=== PATIENT | male | born 1995 | race Caucasian/White ===

== ENCOUNTER → 2019-01-23 | Day surgery (SDC) | payer BC, OTHER ==
[~2019-01-23] MED LIST: Acetaminophen TAB* 325 MG PO PRN; Buffered Lidocaine 1% SYRIN* 1 ML/SYRINGE INTRADERM ONE; Bupivacaine 0.5%* 50 ML MDV VIAL ONE; Cisatracurium* 2 MG/ML MDV 5 ML ONE; Dexamethasone IV* 4 MG/ML 1 ML (4 MG) ONE; DiMENhydriNATE IV* 50 MG/ML VIAL IV PUSH PRN; Famotidine IV* 10 MG/ML 2 ML (20 mg) ONE; HYDROcodone/ACETAMIN 5-325 MG* 1 TAB PO PRN; Iohexol 300* (CONTRAST) 10 ML SDV IV ONE; Ketorolac INJ* 30 MG/ML 1 ML VIAL ONE; Lactated Ringers 1000 ML Bag* 1,000 ML IV SCH; Lidocaine 2% PF * 5 ML VIAL ONE; Midazolam* 1 MG/ML 2 ML VIAL (2 MG) ONE; NS 0.9% 1000 ML** 1,000 ML IV ONE; Naloxone* 0.4 MG/ML 1 ML VIAL IV PRN; Ondansetron INJ* 2 MG/ML VIAL IV PRN; Ondansetron INJ* 2 MG/ML VIAL ONE; PROCHLORPERAZINE INJ 5 MG/ML 2 ML VIAL IV PRN; Piperacillin/Tazobac ADVAN(*) 3.375 GM in NS 0.9% 100 ML* 100 ML IVPB ONE; Propofol* 10 MG/ML 20 ML BTL ONE; Succinylcholine* 20 MG/ML 10 ML VIAL ONE; diPHENhydraMINE IV* 50 MG/ML 1 ml VIAL (BENADRYL) IV PRN; fentaNYL* 50 MCG/ML 2 ML VIAL (100 MCG VIAL) IV PRN; fentaNYL* 50 MCG/ML 2 ML VIAL (100 MCG VIAL) ONE
[2019-01-23 15:22] LABS: ABS Eosinophils 0.1 10^3/ul (0-0.6); ABS Lymphocytes 1.9 10^3/ul (1.0-4.8); ABS Neutrophils 8.2 10^3/ul (1.5-7.7); Eosinophil % 1.1 %; Hematocrit 45 % (42-52); Hemoglobin 14.9 g/dL (14.0-18.0); Lymphocyte % 17.1 %; Mean Corpuscular HGB Conc 34 g/dL (31-36); Mean Corpuscular Hemoglobin 29 pg (27-31); Mean Corpuscular Volume 88 fL (80-94); Mean Platelet Volume 9.3 fL (7.4-10.4); Nucleated Red Blood Cells % 0.1; Platelet Count 195 10^3/uL (150-450); Red Blood Count 5.08 10^6 /uL (4.18-5.48); Red Cell Distribution Width 13 % (10-15); White Blood Count 11.2 10^3/uL (3.5-10.8)
[2019-01-23 16:00] LABS: ALT 8 U/L (7-52); AST 12 U/L (13-39); Albumin 4.4 g/dL (3.2-5.2); Albumin/Globulin Ratio 1.4 (1-3); Alkaline Phosphatase 60 U/L (34-104); Anion Gap 6 mmol/L (2-11); BUN/Creatinine Ratio 11.1 (8-20); Blood Urea Nitrogen 9 mg/dL (6-24); C Reactive Protein 134.23 mg/L (<8.01); CO2 Carbon Dioxide 33 mmol/L (22-32); Calcium 9.7 mg/dL (8.6-10.3); Chloride 101 mmol/L (101-111); EGFR African American 142.9 (>60); EGFR Non-African American 118.1 (>60); Globulin 3.1 g/dL (2-4); Glucose 78 mg/dL (70-100); Potassium 4.9 mmol/L (3.5-5.0); Sodium 140 mmol/L (135-145); Total Protein 7.5 g/dL (6.4-8.9)
[2019-01-23 16:27] LABS: Urine Appearance Clear; Urine Bilirubin Negative (Negative); Urine Blood Negative (Negative); Urine Color Yellow; Urine Glucose Negative (Negative); Urine Ketones Negative (Negative); Urine Nitrite Negative (Negative); Urine Protein Negative (Negative); Urine Specific Gravity 1.011 (1.010-1.030); Urine Urobilinogen Negative (Negative)
--- NOTE | 2019-01-23 16:33 | ED ---
Abdominal Pain/Male - HPI Summary HPI Summary: This patient is a 23-year-old male presenting to the ED with right lower quadrant pain. Patient states symptoms have been present since Tuesday. He states he has also had constipation over the past week or so. His last bowel movement was Tuesday morning after taking a laxative. He denies any melena. He denies any urinary symptoms or back pain. Denies any chest pain or shortness of breath. Denies any fevers, sweats, chills. He states symptoms began to the mid umbilicus area and rested into the RLQ. Denies any pain to the other 3 quadrants of the abdomen. Has never had any symptoms like this before. Denies any abdominal surgeries in the past. [facility] and was sent here for further evaluation of the right lower quadrant pain. Symptoms have improved since Tuesday. He states on Tuesday he rated his pain" A/ 10, currently pain is rated a 3/10. He is declining any pain medications or nausea medications on arrival. He has been nauseous over the past few days, however denies any vomiting. Last PO intake 11:30am. Takes no medications. Denies any allergies. Otherwise healthy. - History of Current Complaint Chief Complaint: EDAbdPain Stated Complaint: LOWER ABD PAIN PER PT Time Seen by Provider: 01/23/19 15:48 Hx Obtained From: Patient Onset/Duration: Sudden Onset Timing: Intermittent Severity Initially: Moderate Severity Currently: Moderate Pain Intensity: 4 Pain Scale Used: 0-10 Numeric Location: Discrete At: RLQ Radiates: No Aggravating Factor(s): Nothing Alleviating Factor(s): Nothing Associated Signs And Symptoms: Positive: Decreased Appetite, Nausea - Risk Factors Testicular Torsion: Negative Cardiac Risk Factors: Negative - Allergies/Home Medications Allergies/Adverse Reactions: Allergies Allergy/AdvReac Type Severity Reaction Status Date / Time No Known Allergies Allergy Unverified 01/01/14 16:14 Home Medications: Home Medications Acetaminophen [Tylenol Extra Strength] 500 mg PO Q8HR PRN 01/23/19 [History Confirmed 01/23/19] Magnesium Hydroxide LIQ* [Milk of Magnesia LIQ*] 30 ml PO BID PRN 01/23/19 [ History Confirmed 01/23/19] PMH/Surg Hx/FS Hx/Imm Hx Previously Healthy: Yes - Immunization History Hx Pertussis Vaccination: No Immunizations Up to Date: Yes Infectious Disease History: No Infectious Disease History: Denies: Traveled Outside the [place] in Last 30 Days - Social History Occupation: Employed Part-time Lives: With Family Alcohol Use: Occasionally Hx Substance Use: No Substance Use Type: Reports: None Hx Tobacco Use: No Smoking Status (MU): Never Smoked Tobacco Review of Systems Negative: Fever, Chills, Fatigue, Skin Diaphoresis Negative: Palpitations, Chest Pain Negative: Shortness Of Breath, Cough Positive: Abdominal Pain - RLQ, Nausea. Negative: Vomiting, Diarrhea Genitourinary: Negative Positive: no symptoms reported, see HPI Negative: Arthralgia, Myalgia Neurological: Negative All Other Systems Reviewed And Are Negative: Yes Physical Exam Triage Information Reviewed: Yes Vital Signs On Initial Exam: Initial Vitals Temp Pulse Resp BP Pulse Ox 97.8 F 85 18 137/86 100 01/23/19 13:28 01/23/19 13:28 01/23/19 13:28 01/23/19 13:28 01/23/19 13:28 Vital Signs Reviewed: Yes Appearance: Positive: Well-Appearing, Well-Nourished Skin: Positive: Skin Color Reflects Adequate Perfusion Head/Face: Positive: Normal Head/Face Inspection Eyes: Positive: EOMI, CHRIS, Conjunctiva Clear Neck: Positive: Supple, No Lymphadenopathy Respiratory/Lung Sounds: Positive: Clear to Auscultation, Breath Sounds Present Cardiovascular: Positive: RRR, Pulses are Symmetrical in both Upper and Lower Extremities Abdomen Description: Positive: Other: - RLQ pain on palpation Musculoskeletal: Positive: Normal, Strength/ROM Intact Neurological: Positive: Alert, Oriented to Person Place, Time, Speech Normal Psychiatric: Positive: Affect/Mood Appropriate Procedures - Sedation Patient Received Moderate/Deep Sedation with Procedure: No Diagnostics - Vital Signs Vital Signs Temp Pulse Resp BP Pulse Ox 01/23/19 15:16 98.1 F 71 18 118/77 100 01/23/19 13:28 97.8 F 85 18 137/86 100 - Laboratory Lab Results: Lab Results 01/23/19 01/23/19 01/23/19 Range/Units 15:12 15:12 15:12 WBC 11.2 H (3.5-10.8) 10^3/uL RBC 5.08 (4.18-5.48) 10^6 /uL Hgb 14.9 (14.0-18.0) g/dL Hct 45 (42-52) % MCV 88 (80-94) fL MCH 29 (27-31) pg MCHC 34 (31-36) g/dL RDW 13 (10-15) % Plt Count 195 (150-450) 10^3/uL MPV 9.3 (7.4-10.4) fL Neut % (Auto) 72.7 % Lymph % (Auto) 17.1 % Hand % (Auto) 8.7 % Eos % (Auto) 1.1 % Baso % (Auto) 0.4 % Absolute Neuts (auto) 8.2 H (1.5-7.7) 10^3/ul Absolute Lymphs (auto) 1.9 (1.0-4.8) 10^3/ul Absolute Monos (auto) 1.0 H (0-0.8) 10^3/ul Absolute Eos (auto) 0.1 (0-0.6) 10^3/ul Absolute Basos (auto) 0.0 (0-0.2) 10^3/ul Absolute Nucleated RBC 0.0 10^3/ul Nucleated RBC % 0.1 Sodium 140 (135-145) mmol/L Potassium 4.9 (3.5-5.0) mmol/L Chloride 101 (101-111) mmol/L Carbon Dioxide 33 H (22-32) mmol/L Anion Gap 6 (2-11) mmol/L BUN 9 (6-24) mg/dL Creatinine 0.81 (0.67-1.17) mg/dL Est GFR ( Amer) 142.9 (>60) Est GFR (Non-Af Amer) 118.1 (>60) BUN/Creatinine Ratio 11.1 (8-20) Glucose 78 (70-100) mg/dL Lactic Acid 1.1 (0.5-2.0) mmol/L Calcium 9.7 (8.6-10.3) mg/dL Total Bilirubin 0.70 (0.2-1.0) mg/dL AST 12 L (13-39) U/L ALT 8 (7-52) U/L Alkaline Phosphatase 60 (34-104) U/L C-Reactive Protein 134.23 H (<8.01) mg/L Total Protein 7.5 (6.4-8.9) g/dL Albumin 4.4 (3.2-5.2) g/dL Globulin 3.1 (2-4) g/dL Albumin/Globulin Ratio 1.4 (1-3) Lipase < 10 L (11.0-82.0) U/L Result Diagrams: 01/23/19 15:12 01/23/19 15:12 Lab Statement: Any lab studies that have been ordered have been reviewed, and results considered in the medical decision making process. Abdominal Pain Male Course/Dx - Course Course Of Treatment: Patient is evaluated for right lower quadrant pain. Labs obtained which showed 11,000 white count and 134 CRP. Patient denies any fevers , sweats, chills. Continues to endorse pain to the right lower quadrant, however this is improved since 2-3 days ago. He states his symptoms are currently rated a 3/10. A CT abdomen/pelvis was obtained and this is pending. He is signed out to DOMINIQUE Rosado pending CT. He is declining any pain medication or nausea medication. - Diagnoses Differential Diagnosis/HQI/PQRI: Urinary Tract Infection Provider Diagnoses: Right lower quadrant abdominal pain Discharge ED - Sign-Out/Discharge Documenting (check all that apply): Sign-Out Patient Signing out patient TO: Abdirashid Chambers - Discharge Plan Condition: Good Disposition: ADMITTED TO [facility] - Billing Disposition and Condition Condition: GOOD Disposition: Admitted to [facility] - Attestation Statements Provider Attestation: pt seen by midlevel provider independently, based on their assessment, it was not necessary to present the case to me but I was available for consultation. I did not form a physician-patient relationship with the patient. The chart however, has been reviewed. am signing this note strictly in an administrative capacity. Addendum entered and electronically signed by Mandi Barrios PA 01/27/19 05:45 : ED Addendum Addendum: Disposition: Signed out patient to Abdirashid Chambers PA-C pending CT results
--- NOTE | 2019-01-23 18:46 | PN ---
Progress Note - Progress Note Date of Service: 01/23/19 Note: Patient signed out to me by Alvarez Solorzano's PA pending results of CAT scan of abdomen and pelvis. CT abdomen and pelvis positive for appendicitis. Patient admitted in stable condition to surgery Dr. Cristina.
--- NOTE | 2019-01-23 20:57 | HP ---
HISTORY AND PHYSICAL: DATE OF ADMISSION: 01/23/19 CHIEF COMPLAINT: Abdominal pain. HISTORY OF PRESENT ILLNESS: This pleasant 23-year-old patient was referred to me by the ER for marcos rns for appendicitis. He presented today with abdominal pain to the emergency room. His history rev ealed he has had on and off varying degree of discomfort in the lower abdomen since or y of last week. No nausea or vomiting. Question temp to 99 last night, may be some chills. He has originally had some constipation, took some MiraLAX, has had some loose bowel movements. Since then workup in the emergency room included CT scan of the abdomen and pelvis interpreted by Dr. Halina montano with appendicitis, pending clinical correlation. Laboratory studies showed an elevated white blood cell count of 11.2. C-reactive protein elevated at 134. UA was negative. PAST MEDICAL HISTORY: Denies history of cardiac, liver, kidney, or lung disease. PAST SURGICAL HISTORY: No prior abdominal surgery. MEDICATIONS: None. ALLERGIES: None. FAMILY HISTORY: Denies history of colorectal or breast cancer. SOCIAL HISTORY: He is here with his mother, girlfriend. No tobacco or alcohol use. REVIEW OF SYSTEMS: General: Denies weight loss or change of appetite. HEENT: No changes in vision , hearing, or swallowing. No sore throat. Cardiac: No chest pain. Pulmonary: No cough. GI: No blood per rectum. : No hematuria. Skin: Denies rash. Neuro: No headache or dizziness. Musculo skeletal: No extremity weakness. Psych: No anxiety or depression, all prior this event. PHYSICAL EXAMINATION GENERAL: Pleasant gentleman complaining of abdominal pain. HEENT: His sclerae are anicteric. Oral mucosa is pink and moist. NECK: Supple. No JVD. No masses. LUNGS: Clear. HEART: Regular. ABDOMEN: Soft, tender in the right lower quadrant, some guarding. No masses or organomegaly. EXTREMITIES: No clubbing, cyanosis, or edema. NEURO: Grossly intact. No focal motor or sensory deficits. SKIN: No rash, petechiae, or jaundice. IMPRESSION: Appendicitis, unclear of timing. I reviewed the CT scan and talked to the patient and offered consideration for laparoscopic appendectomy versus observation with antibiotics. His mother is a nurse, they discussed this already, risks of surgery including but not limited to bleeding, infe ction, injury to intraabdominal contents including the bowel, ureter, other intraabdominal contents, having to convert it to open surgery versus conservative treatment with IV antibiotics potentially wi th surgery down the line. The patient has decided he would like to proceed with appendectomy and all questions were answered. [id number]/[facility] #: [id number]
[2019-01-23 22:45] VITALS: BP 131/87
--- NOTE | 2019-01-24 05:59 | OP ---
DATE OF OPERATION: 01/23/19 - [facility] DATE OF : 89 ATTENDING SURGEON: Travon Cristina MD PRE-OP DIAGNOSIS: Appendicitis. POST-OP DIAGNOSIS: Appendicitis. OPERATIVE PROCEDURE: Laparoscopic appendectomy. INDICATIONS FOR PROCEDURE: Appendicitis. Risks included but not limited to bleeding, infection, injury to intraabdominal contents including the bowel, no relief of symptoms explained to the patient, who seemed to understand and agreed to the procedure, and all questions were answered. DESCRIPTION OF PROCEDURE: The patient was taken to the operating room and placed supine. Preoperative antibiotics had been given. After the successful induction of general endotracheal anesthesia, the abdomen was prepped and draped in sterile fashion. A time-out was performed indicating correct patient , correct procedure. A left lower quadrant 5 mm trocar was placed under direct visualization of the camera using a bladeless Optiview trocar. Pneumoperitoneum was achieved at 15 mmHg. Camera was placed in the abdomen. The abdomen was scanned. There was no obvious injury from trocar placement. A 12 mm umbilical and 5 mm suprapubic trocars were placed under direct visualization of the camera. The cecum was gently mobilized immediately exposing an acutely inflamed appendix. Piece of small bowel adherent to the mesoappendix, gently bluntly was separate from this. The base of the appendix was isolated and divided with a stapler and in similar fashion, mesoappendix was stapled and divided. It was placed into an Endo bag and removed from the umbilical port site. The right lower quadrant was irrigated and aspirated dry. EBL minimal. Hemostasis was intact. There was no abscess. Fluid was aspirated out of the pelvis. Abdomen was scanned. There was no obvious injury noted. The omentum was then placed over the cecum in the operative site. The patient tolerated the procedure well. The trocars were removed after pneumoperitoneum was released from the abdomen. The midline fascia was closed with an 0 Vicryl, skin was closed with Monocryl and glue. He tolerated the procedure well. He was extubated and taken to the recovery room in stable condition. [id number]/[facility] #: [id number] [facility]
== END | disposition home or self-care (01) ==
LOC: ED 13:25 → OR 20:20
PROVIDERS: ATTEND Surgery
DX: K36 Other appendicitis (principal); B82.9 Intestinal parasitism, unspecified; R10.31 Right lower quadrant pain
CPT/HCPCS: 36415; 74177; 80053; 81003; 83605; 83690; 85025; 86140; 88304; 99285; C1776; J0330; J1100; J1885; J2250; J2405; J2543; J2704; J3010; J3490; Q9967